=== PATIENT | male | born 1955 | race Caucasian/White ===

== ENCOUNTER 2022-01-07 13:58 | Emergency (ER) | payer MEDICARE ==
[~2022-01-07] VITALS: Ht 172.7 cm; Wt 90.7 kg
[~2022-01-07 13:58] MED LIST: CIPRO500 MG PO; Colace100 MG PO; Crutch1 EACH MISC; FAMO10 PO; Flagyl500 MG PO; Flomax0.4 MG PO; Golytely Solu4000 ML PO; IBUP600 PO; Norco 5-325 Ta1 EACH PO; Percocet 5-3251 EACH PO; TAMS.4ER PO; Zofran8 MG PO; [UNRECOGNIZED DRUG - OTHER]
== END 2022-01-07 15:27 | disposition home or self-care (01) ==
LOC: ER 13:58
DX: S80.01XA Contusion of right knee, initial encounter (principal); W22.03XA Walked into furniture, initial encounter; Z79.899 Other long term (current) drug therapy
CPT/HCPCS: 73562-RT

== ENCOUNTER 2023-12-15 10:20 | Emergency (ER) | payer MEDICARE, OTHER ==
[~2023-12-15] VITALS: Ht 172.7 cm; Wt 86.2 kg
[2023-12-15] MEDS ORDERED: PLAVIX75 MG PO (10:35)
[2023-12-15] MEDS ORDERED: MAGNESIUM OXID500 MG PO (10:35)
[2023-12-15] MEDS ORDERED: Amiodarone HCl200 MG PO (10:35)
[2023-12-15] MEDS ORDERED: METOPROLOL TART25 MG PO (10:36)
[2023-12-15] MEDS ORDERED: PANTOPRAZOLE SO40 M2 PO (10:37)
[2023-12-15] MEDS ORDERED: NS 1,000 ML IV SCH (10:50)
[2023-12-15 10:55] LABS: BASOPHILS ABSOLUTE AUTO 0.05 K/mm3 (0.00-0.23); BASOPHILS PERCENT AUTO 0 % (0-2); EOSINOPHILS ABSOLUTE AUTO 0.11 K/mm3 (0.00-0.68); EOSINOPHILS PERCENT AUTO 1 % (0-6); Hematocrit 37.4 % (37.0-53.0); IMMATURE GRAN ABSOLUTE AUTO 0.09 K/mm3 (0.00-0.10); IMMATURE GRAN PERCENT AUTO 1 % (0-1); LYMPHOCYTES ABSOLUTE AUTO 0.66 K/mm3 (0.84-5.20); LYMPHOCYTES PERCENT AUTO 6 % (21-46); MONOCYTES ABSOLUTE AUTO 0.68 K/mm3 (0.16-1.47); MONOCYTES PERCENT AUTO 6 % (4-13); Mean Corpuscular HGB 30.5 pg (26.0-34.0); Mean Corpuscular HGB Conc 32.1 g/dL (31.5-36.5); Mean Corpuscular Volume 95 fL (80-100); Mean Platelet Volume 8.5 fL (9.1-12.4); NEUTROPHILS ABSOLUTE AUTO 9.64 K/mm3 (1.96-9.15); NEUTROPHILS PERCENT AUTO 86 % (41-73); Platelet Count 426 K/mm3 (150-400); RDW Coefficient Variation 13.6 % (11.7-14.2); RDW Standard Deviation 47.7 fL (35.1-46.3); Red Blood Cell Count 3.93 M/mm3 (4.30-5.90); White Blood Cell Count 11.23 K/mm3 (4.00-11.30)
[2023-12-15 11:19] LABS: Albumin, Blood 3.3 g/dL (3.4-5.0); Albumin/Globulin Ratio 0.8 (0.8-1.8); Bilirubin, Total 0.6 mg/dL (0.1-1.0); Bun/Creatinine Ratio 30.3 (12.0-20.0); Calcium, Blood 8.6 mg/dL (8.5-10.1); Creatinine, Blood 0.93 mg/dL (0.60-1.20); Globulin, Blood 3.9 g/dL (2.2-4.0); Potassium, Blood 3.8 mmol/L (3.5-5.5); Total Protein, Blood 7.2 g/dL (6.4-8.2)
[2023-12-15 12:30] VITALS: BP 121/70
== END 2023-12-15 13:02 | disposition home or self-care (01) ==
LOC: ER 10:20
PROVIDERS: Emergency Medicine
DX: S01.21XA Laceration without foreign body of nose, initial encounter (principal); K21.9 Gastro-esophageal reflux disease without esophagitis; W22.8XXA Striking against or struck by other objects, initial encounter; Z79.02 Long term (current) use of antithrombotics/antiplatelets; Z79.899 Other long term (current) drug therapy
CPT/HCPCS: 80053; 85025; 93005; 93010; 96360; 99284-25; J7030

== ENCOUNTER 2024-06-08 06:05 | Day surgery (SDC) | payer MEDICARE, OTHER ==
[~2024-06-08] VITALS: Ht 169 cm; Wt 87.0 kg
[2024-06-08] VITALS (13 sets, daily range): BP systolic 109–137; BP diastolic 62–108
[~2024-06-08 06:05] MED LIST changes: +ATOR80; +Amiodarone HCl200 MG PO; +Aspir 8181 MG PO; +Co Q-1030 MG PO; +GUAI600T33 PO; +MAGNESIUM OXID500 MG PO; +METOPROLOL TART25 MG PO; +MULVITA PO; +PANTOPRAZOLE SO40 M2 PO; +PLAVIX75 MG PO; +UBID10 PO
[2024-06-08] MEDS ORDERED: CeFAZolin Sodium 2,000 MG in NS 100 ML IV SCH (06:30)
[2024-06-08] MEDS ORDERED: Lactated Ringer's 1,000 ML IV SCH (06:30)
[2024-06-08] MEDS ORDERED: Acetaminophen 500 MG Tab PO ONE (06:45)
[2024-06-08] MEDS ORDERED: Rocuronium Bromide 10 MG/ML 5ML Injection IV ONE ×2 (06:45→07:57)
[2024-06-08] MEDS ORDERED: Ondansetron HCl 2 MG / ML 2ML Vial ONE (06:45)
[2024-06-08] MEDS ORDERED: Metoclopramide HCl 5MG / ML 2ML Vial ONE (06:45)
[2024-06-08] MEDS ORDERED: Dexamethasone Sod Phos 10 MG/ML 1ML VIAL ONE (06:45)
[2024-06-08] MEDS ORDERED: Ketorolac Tromethamine 30mg Vial ONE (06:46)
[2024-06-08] MEDS ORDERED: HYDROmorphone HCl/Pf 1MG SYR ONE (06:46)
[2024-06-08] MEDS ORDERED: Sugammadex Sodium 200 MG/2ML SDV (100 MG/ML) ONE (06:46)
[2024-06-08] MEDS ORDERED: propofoL 150 ML IV ONE (06:47)
[2024-06-08] MEDS ORDERED: Lidocaine HCl 2% 20 ML MDV ONE (06:47)
[2024-06-08] MEDS ORDERED: Dexmedetomidine HCL 200 MCG / 2 ML ONE (06:47)
[2024-06-08] MEDS ORDERED: Lidocaine HCl 4% 5 ML SDA ONE (07:01)
[2024-06-08] MEDS ORDERED: Bupivacaine 0.5% HCl 5 MG/ML 30MLVIAL ONE (07:09)
--- NOTE | 2024-06-08 07:33 | NUR ---
History, Chart, Medications and Allergies reviewed before start of procedure. Patient up to Ambulate independently. Gait steady. Pre-Op teaching done. Pt verbalizes understanding. Patient confirms NPO status and agrees with scheduled surgery. Patient reports completing Chlorhexadine shower X2 prior to admission to hospital. Surgical site prepped with 2% Chlorhexidine cloth wipe. Patient States Post-Procedure ride home has been arranged.
[2024-06-08] MEDS ORDERED: Phenylephrine HCl 100 MCG/ML-NS 10MLSYR (1MG/10ML) ONE (07:54)
[2024-06-08] MEDS ORDERED: Glycopyrrolate 0.2 MG/ML 5ML VIAL ONE (08:08)
[2024-06-08] MEDS ORDERED: propofoL 40 ML IV ONE (08:59)
[2024-06-08] MEDS ORDERED: FentaNYL Citrate 50 MCG/ML 2 ML Injection ONE (09:35)
[2024-06-08] MEDS ORDERED: OxyCODONE 5 mg/Acetamin 325 mg TABLET PO PRN (10:30)
--- NOTE | 2024-06-08 10:43 | NUR ---
PT TO DAY SURGERY STEP DOWN FROM ROBOTIC ASSISTED LAPAROSCOPIC HERNIA REPAIR; BEDSIDE REPORT RECEIVED. PT IS SLEEPY, BUT RESPONDS TO VOICE, FALLS TO SLEEP EASILY. SA02 90% ON RA ON ARRIVAL, 2L O2 VIA NC PLACED. PT HAS 4 INCISION SITES ON ABD THAT ARE C/D/I AND CLOSED WITH EXOFIN. PT DENIES PAIN.
--- NOTE | 2024-06-08 11:00 | NUR ---
PT STILL SLEEPY, BUT STARTING TO WAKE UP AND TALK TO WHO IS AT THE BEDSIDE ON AND OFF. INCISIONS REMAIN C/D/I.
--- NOTE | 2024-06-08 11:42 | NUR ---
OXYGEN REMOVED, PT DRINKING PO FLUIDS AND TOLERATING WELL. PT DECLINES HOSPITAL ICE PACK, STATE HE HAS MANY AT HOME TO USE. Discharge instructions reviewed with patient. Patient verbalizes understanding. Copy given to patient to take home. Patient States Post-Procedure ride home has been arranged.
--- NOTE | 2024-06-08 11:59 | NUR ---
Patient up to Ambulate independently. Gait steady.
--- NOTE | 2024-06-08 12:04 | NUR ---
Discharged via wheelchair to private car for ride home.
== END 2024-06-08 12:08 | disposition home or self-care (01) ==
LOC: ORSCMMR 06:05 → ORD 07:30 → ORSCMMR 07:30
DX: K40.30 Unilateral inguinal hernia, with obstruction, without gangrene, not specified as recurrent (principal); K41.30 Unilateral femoral hernia, with obstruction, without gangrene, not specified as recurrent; K45.0 Other specified abdominal hernia with obstruction, without gangrene; K66.0 Peritoneal adhesions (postprocedural) (postinfection); D17.6 Benign lipomatous neoplasm of spermatic cord; I25.10 Atherosclerotic heart disease of native coronary artery without angina pectoris; I25.2 Old myocardial infarction; Z79.02 Long term (current) use of antithrombotics/antiplatelets; Z79.82 Long term (current) use of aspirin; E66.9 Obesity, unspecified; Z68.30 Body mass index [BMI] 30.0-30.9, adult
CPT/HCPCS: A9270; C1781; J0690; J1100; J1171; J1885; J2003; J2371; J2405; J2704; J2765; J3010; J7120